=== PATIENT | female | born 1970 | race African-American/Black ===

== ENCOUNTER → 2017-01-20 | Outpatient (REF) | payer OTHER ==
[~2017-01-20] MED LIST: BIRTH CONTROL PO; MULTTAB PO; PROBCAP4 PO
== END ==
LOC: M LAB REF 18:47
PROVIDERS: ATTEND Physician Assistant
DX: R30.0 Dysuria (principal)

== ENCOUNTER → 2017-07-03 | Outpatient (REF) | payer OTHER | LOC: M LAB REF 09:33 | PROVIDERS: ATTEND Physician Assistant | DX: N39.0 Urinary tract infection, site not specified (principal) ==

== ENCOUNTER → 2017-12-30 | Outpatient (REF) | payer OTHER | LOC: M LAB REF 09:03 | DX: N39.0 Urinary tract infection, site not specified (principal) ==

== ENCOUNTER → 2018-04-13 | Outpatient (CLI) | payer OTHER | LOC: M WUC 12:24 | DX: M50.323 Other cervical disc degeneration at C6-C7 level (principal); S16.1XXA Strain of muscle, fascia and tendon at neck level, initial encounter; S29.012A Strain of muscle and tendon of back wall of thorax, initial encounter; X58.XXXA Exposure to other specified factors, initial encounter; Y92.89 Other specified places as the place of occurrence of the external cause | CPT/HCPCS: 72052 ==

== ENCOUNTER → 2018-07-19 | Outpatient (REF) | payer OTHER | LOC: M SFHCLERA 11:23 | DX: N89.8 Other specified noninflammatory disorders of vagina (principal); R30.0 Dysuria ==

== ENCOUNTER → 2019-09-05 | Outpatient (REF) | payer OTHER | LOC: M LAB REF 08:57 | PROVIDERS: ATTEND Physician Assistant | DX: R30.0 Dysuria (principal) ==

== ENCOUNTER → 2020-07-23 | Outpatient (REF) | payer OTHER | LOC: M WUC 14:31 | PROVIDERS: ATTEND Physician Assistant | DX: R30.0 Dysuria (principal) ==

== ENCOUNTER → 2020-12-21 | Outpatient (REF) | payer OTHER ==
[2020-12-21 19:57] LABS: CHLAMYDIA DNA AMPLIFICATION NEGATIVE (NEGATIVE); GC DNA AMPLIFICATION NEGATIVE (NEGATIVE)
== END ==
LOC: M WUC 15:40
PROVIDERS: ATTEND Physician Assistant
DX: R30.0 Dysuria (principal)

== ENCOUNTER → 2021-07-20 | Outpatient (CLI) | payer OTHER ==
--- NOTE | 2021-07-20 18:06 | REP ---
INDICATION: EDEMA TO R/O REFLUX. COMPARISON: None. TECHNIQUE: Multiple ultrasonographic images of the deep venous structures of the bilateral lower extremity were obtained from the inguinal ligament to the ankle. Venous compression techniques, color doppler imaging, and augmentation techniques were also obtained where appropriate. As per the ACR guidelines the anterior tibial vein can not be effectively evaluated. Only compression techniques in the calf on the peroneal and posterior tibial veins was attempted/performed. FINDINGS: There is no abnormal echogenic material seen within any of the visualized deep venous structures that would suggest acute thrombosis. Coaptation is unremarkable throughout. Doppler interrogation shows an expected response to respiratory variability and augmentation in the thigh. Compression techniques in the calf were unobtainable. The color flow images show what appears to be a normal vascular pattern throughout the thigh. Bilateral deep vein reflux study was also performed. On the right: No reflux was seen in the common femoral vein An anterior accessory greater saphenous vein was present and reflux was identified. Reflux was seen in the greater saphenous vein at the saphenous femoral junction of 4.8 seconds duration the AP dimension of which measured 6.3 mm. Reflux was seen in the greater saphenous vein at the mid thigh level of 2.1 seconds duration the AP dimension of which measured 3.9 mm. Reflux was seen in the greater saphenous vein at the knee the duration of which is 6.2 seconds and the AP dimension of which measured 4.3 mm. No reflux was seen distal to this. On the left: No reflux was seen in the common femoral vein. Reflux was seen in an anterior accessory greater saphenous vein. Reflux was seen in the greater saphenous vein at the saphenous femoral junction of 2.3 seconds duration the AP dimension of which measured 6.2 mm. No reflux was seen in the greater saphenous vein at the mid thigh level the AP dimension of which measured 3.8 mm. Reflux was seen in the greater saphenous vein at the level of the knee of 3.3 seconds duration the AP dimension of which measured 4.1 mm. No reflux was seen in any portion of the superficial femoral vein. Reflux was seen in the popliteal vein. Reflux was seen in the lesser saphenous vein of 9.5 seconds duration the AP dimension of which measured 26 mm. IMPRESSION: There is no ultrasonographic evidence of deep venous thrombosis involving any of the visualized deep venous structures of the bilateral lower extremity as described above. Due to technical parameters calf vein DVT can not be ruled out. Bilateral deep vein reflux study as described above. <Electronically signed by Yuniel Inman > 07/20/21 [id number]
== END ==
LOC: M RAD 15:32
PROVIDERS: ATTEND Podiatrist Foot & Ankle Surgery
DX: R60.9 Edema, unspecified (principal)

== ENCOUNTER → 2021-08-08 | Outpatient (POV) | payer OTHER ==
--- NOTE | 2021-08-10 14:11 | IRCOV ---
[facility] IR Consult Office Visit IR Consult Office Visit DATE: Aug 08, 2021 Patient decided on a telephone consultation. I spent 30 minutes reviewing patient's records, imaging and talking to the patient. REASON FOR CONSULTATION/CHIEF COMPLAINT: Leg swelling. 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 She states the swelling is worse at the end of the day. She is on her feet all day. She states her legs swell and feel heavy. She does wear compression stockings. She denies any intermittent claudication or rest pain with elevation. She does describe bulging veins on the right leg. She denies any prior DVT. Patient denies chest pain, shortness of breath, orthopnea or paroxysmal nocturnal dyspnea. No prior lower extremity arterial or venous interventions. ALLERGIES: Please see below. HOME MEDICATIONS: Please see below. PAST MEDICAL HISTORY: Hypertension PAST SURGICAL HISTORY: Noncontributory FAMILY HISTORY: Noncontributory. SOCIAL HISTORY: Non-smoker. Denies alcohol or drugs. No video available. LABORATORY DATA: None Imaging: I personally reviewed the bilateral lower extremity standing venous reflux study performed 07/20/2021. There is bilateral greater saphenous vein reflux greater than 0.5 seconds. 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 This is getting progressively worse. Her ultrasound confirms underlying greater saphenous vein incompetency, which may be causing her symptoms. We discussed the risks and benefits of EVLT therapy. Patient will think about this and let us know if she would like to schedule the procedure. I spent 30 minutes reviewing patient's records, imaging and in consultation with the patient. Thank you for this referral. CC Dr. Holloway Allergies Coded Allergies: MS - Sulfamethoxazole w/Trimethopri (Verified Allergy, Unknown, 11/24/15) Home Medications Scheduled (Multiple Vitamin), 1 TAB PO DAILY, (Reported) Lactobacillus Acidophilus (Probiotic), 1 CAP PO DAILY, (Reported) [ Control], PO DAILY, (Reported) ALBERTO JUNE MD Aug 10, 2021 14:11
== END ==
LOC: M IRPOV 14:15
PROVIDERS: ATTEND Radiology Diagnostic Radiology
DX: I87.2 Venous insufficiency (chronic) (peripheral) (principal); I10 Essential (primary) hypertension; R60.0 Localized edema

== ENCOUNTER → 2022-02-26 | Outpatient (CLI) | payer OTHER | LOC: M WHC 12:35 | PROVIDERS: ATTEND Family Medicine | DX: Z12.31 Encounter for screening mammogram for malignant neoplasm of breast (principal) ==

== ENCOUNTER → 2023-02-15 | Outpatient (REF) | payer OTHER ==
[2023-02-15 21:39] LABS: GC DNA AMPLIFICATION NEGATIVE (NEGATIVE)
== END ==
LOC: M WUC 19:01
PROVIDERS: ATTEND Physician Assistant
DX: N76.0 Acute vaginitis (principal)

== ENCOUNTER → 2023-03-01 | Outpatient (CLI) | payer OTHER | LOC: M WHC 16:57 | PROVIDERS: ATTEND Family Medicine | DX: Z12.31 Encounter for screening mammogram for malignant neoplasm of breast (principal); R92.2 Inconclusive mammogram ==

== ENCOUNTER → 2023-03-20 | Outpatient (CLI) | payer OTHER | LOC: M WHC 15:33 | PROVIDERS: ATTEND Family Medicine | DX: Z12.31 Encounter for screening mammogram for malignant neoplasm of breast (principal) ==

== ENCOUNTER → 2023-07-01 | Outpatient (CLI) | payer OTHER | LOC: M RAD 08:11 | PROVIDERS: ATTEND Surgery Vascular Surgery | DX: I87.2 Venous insufficiency (chronic) (peripheral) (principal) ==

== ENCOUNTER → 2023-07-02 | Outpatient (CLI) | payer OTHER ==
[~2023-07-02] MED LIST changes: +LIDOCAINE 1% MDV 20ML VIAL As Ordered ONE
[2023-07-02 08:10] VITALS: TEMP 97.8
[2023-07-02 09:05] VITALS: BP 130/81; O2SAT 99
== END ==
LOC: M IRPRO 08:00
PROVIDERS: ATTEND Family Medicine
DX: N63.23 Unspecified lump in the left breast, lower outer quadrant (principal)

== ENCOUNTER → 2025-08-02 | Outpatient (CLI) | payer OTHER ==
[~2025-08-02] MED LIST changes: -LIDOCAINE 1% MDV 20ML VIAL As Ordered ONE
== END ==
LOC: M PLAIMG 15:07
PROVIDERS: ATTEND Internal Medicine
DX: R01.1 Cardiac murmur, unspecified (principal)

== ENCOUNTER → 2025-08-23 | Outpatient (CLI) | payer OTHER | LOC: M WHC 07:46 | PROVIDERS: ATTEND Internal Medicine | DX: Z12.31 Encounter for screening mammogram for malignant neoplasm of breast (principal) ==